=== PATIENT | female | born 1950 | race Caucasian/White ===

== ENCOUNTER 2024-09-30 11:08 | Emergency (ER) | payer MEDICAID ==
[~2024-09-30] VITALS: Ht 160 cm; Wt 79.0 kg
[2024-09-30 11:21] VITALS: O2SAT 96
[2024-09-30 11:53] LABS: BASOPHILS % 0.3 % (0.0-2.0); EOSINOPHILS % 0.2 % (0.0-5.0); HEMATOCRIT. 43.1 % (36.0-48.0); LYMPHOCYTES % 15.5 % (20.0-50.0); MEAN CORPUSCULAR HEMOGLOBIN 29.2 pg (28.0-32.0); MEAN CORPUSCULAR HGB CONC 32.4 g/dL (31.0-37.0); MEAN CORPUSCULAR VOLUME 90.3 fL (81.0-99.0); MEAN PLATELET VOLUME 9.5 fl (7.4-10.4); PLATELET 314 x1000/uL (130-400); RED BLOOD CELL COUNT 4.78 mill/uL (4.2-5.4); RED CELL DISTRIBUTION WIDTH 13.4 % (11.6-14.6); WHITE BLOOD COUNT 11.3 x1000/uL (4.5-11.0)
[2024-09-30 12:03] LABS: CHLORIDE 102 mEq/L (98-107); POTASSIUM 3.9 mEq/L (3.5-5.1); SODIUM 137 mEq/L (136-145)
[2024-09-30 12:04] LABS: CALCIUM 9.7 mg/dL (8.7-10.4); CARBON DIOXIDE 25 mEq/L (21-32)
[2024-09-30 12:09] LABS: CREATININE 0.8 mg/dL (0.6-1.0); GLUCOSE 151 mg/dL (70-105); UREA NITROGEN BLOOD 15 mg/dL (9-23)
[2024-09-30 12:17] LABS: TROPONIN I HIGH SENSITIVITY < 4 ng/L (3.0-34)
[2024-09-30] MEDS: METHYLPREDNISOLONE SOD SUCC 125MG/2ML (ACT-O-VIAL) IV ONE (13:08)
[2024-09-30] MEDS: DIPHENHYDRAMINE 50MG/ML VIAL IV ONE (13:08)
[2024-09-30] MEDS: FAMOTIDINE 20MG/2ML VIAL IV ONE (13:08)
[2024-09-30] MEDS ORDERED: FAMO-135 PO (14:41)
[2024-09-30] MEDS ORDERED: DIPH25CA83 MT (14:41)
[2024-09-30] MEDS ORDERED: P50 PO (14:41)
[2024-09-30 15:06] VITALS: BP 121/64; PULSE 85; RESP 18; TEMP 37.28076; O2SAT 98
== END 2024-09-30 15:10 | disposition home or self-care (01) ==
LOC: ER 11:25
DX: L50.9 Urticaria, unspecified (principal); E11.9 Type 2 diabetes mellitus without complications; I10 Essential (primary) hypertension
CPT/HCPCS: 80048; 83880; 85025; 84484; 36415; 93005; 96374; 96375; 99284; J1200; J3490; J2919; Z7610